=== PATIENT | female | born 2000 | race Caucasian/White ===

== ENCOUNTER 2020-02-02 13:49 | Emergency (ER) | payer BC ==
--- OUTSIDE RECORDS SUMMARY | 2020-02-02 14:06 | XMS REPORT | Continuity of Care Document ---
:2000 External Reference #:[id number] Author Name SAHRA West Address [address] [place] [address] Care Team Providers Name Role Phone Darren Carlson MD - Family Care Team Information Block Cutter Medicine Problems Description No Information Available Social History Type Date Description Comments Sex Unknown Tobacco Use Start: Unknown Never Smoked Cigarettes Smoking Status Reviewed: 12/20/19 Never Smoked Cigarettes ETOH Use Denies alcohol use Tobacco Use Start: Unknown Nonsmoker Recreational Drug Use Denies Drug Use Exercise Type/Frequency Exercises regularly Allergies, Adverse Reactions, Alerts Description No Known Drug Allergies Medications Active Medications SIG Qnty Indications Ordering Provider Date Sertraline HCL take 1 tablets by 45tabs F33.9 David Dumont, 12/20/2019 25mg mouth every day M.D. Tablets for the first week. increase to 2 tablets after the first week. Nexplanon 2016 Unknown 68mg Implant Immunizations Description No Information Available Vital Signs Date Vital Result Comment 12/20/2019 9:18am BP Systolic 110 mmHg BP Diastolic 78 mmHg Heart Rate 73 /min Body Temperature 98.0 F Respiratory Rate 16 /min Height 64 inches 5'4" Weight 176.50 lb BMI (Body Mass Index) 30.3 kg/m2 Results Test Acquired Date Facility Test Result H/L Range Note CBC Electronic Fma 12/20/2019 [facility]) WBC 6.3 x10^3/UL 4.0- 10.0 RBC 4.79 x10^6/UL 3.93-6.00 HGB 14.4 g/dL 12.0-17.0 HCT 43 % 35-50 MCV 90.6 fL 80.0-95.0 MCH 30.1 pg 25.6-32.2 MCHC 33.2 g/dL 32.2-36.0 RDW-CV 13.5 % 11.6-14.4 PLT 267 x10^3/UL 163-400 MPV 11.6 fL 9.4-12.4 [place]# 3.73 x10^3/UL 1.56-6.13 Lymph# 1.98 x10^3/UL 1.18-3.74 [place]# 0.46 x10^3/UL 0.24-0.82 Eos # 0.1 x10^3/UL 0.0-0.5 Baso # 0.02 x10^3/UL 0.01-0.08 [place]% 59.4 % 34.0-70.0 Lymph % 31.5 % 20.0-52.0 [place]% 7.3 % 5.0-12.0 Eos% 1.3 % 0.7-7.0 Baso% 0.3 % 0.1-1.2 Comprehensive Metabolic 12/20/2019 [facility](f[facility]) Sodium 139 mEq/L 134-149 Prof Potassium 4.3 mEq/L 3.6-5.5 Chloride 103 mEq/L 94-112 Carbon Dioxide 21 mEq/L 21-32 Glucose 84 mg/dL 70-105 BUN 11 mg/dL 6-26 Creatinine 0.6 mg/dL 0.6-1.4 BUN/Creat Ratio 18.3 CALC 8.0-36.0 Calcium 9.9 mg/dL 8.9-10.6 Total Protein 7.2 g/dL 6.4-8.3 Albumin 4.9 g/dL 3.8-5.5 Globulin 2.3 g/dL 2.0-4.8 A/G Ratio 2.1 CALC 0.6-2.3 Alk. Phosphatase 73 U/L 30-110 Alt (SGPT) 35 U/L 7-35 Ast (Sgot) 27 U/L 5-34 Total Bilirubin 0.7 mg/dL 0.2-1.3 GFR Non- >60 ml/min/1.73m^ >=60 GFR >60 ml/min/1.73m^ >=60 Laboratory test 12/20/2019 [facility]) Free T4 1.00 ng/dL 0.75- 1.54 finding TSH 3.57 mIU/L 0.50-6.00 Free T3 2.58 pg/mL 2.00-4.90 Teressa Panel-LD 12/20/2019 [facility] Anti-dsDNA <1 IU/mL 0-9 1, 2 ([facility]) [address] [facility] [place] [address] (607)- - Antinuclear 12/20/2019 [facility] Antinuclear Positive Abnormal 3 Antibodies [address] [facility] Antibodies, Ifa (Teressa), [place] [address] (603)- - Homogeneous Pattern 1:160 High Nucleolar Pattern TNP Speckled Pattern TNP Centromere Pattern TNP Spindle Apparatus Pattern TNP Nuclear Membrane Pattern TNP Midbody Pattern TNP Nuclear Dot Pattern TNP Pcna Pattern TNP Centriole Pattern TNP Note: See Comment: 4 Sjogren's AB, 12/20/2019 [facility] Sjogren's <0.2 AI 0.0-0.9 Anti-SS-A/-SS-B [address] [facility] [place] [place] [address] (607)- - Sjogren's Anti-SS-B <0.2 AI 0.0-0.9 Rheumatoid Arthritis 12/20/2019 [facility] Ra Latex <10.0 0.0-13.9 Factor ([facility]) [address] [place] [address] Turbid. IU/[place] [address] (608)- - Antiextractable 12/20/2019 [facility] MANAGER SERVICING Antibodies <0.2 AI 0.0-0.9 Nuclear Antigens [address] [place] [address] (606)- - Marinelli Antibodies <0.2 AI 0.0-0.9 Thyroid Antibody & 12/20/2019 [facility] Thyroid Peroxidase 11 IU/mL 0-[address] [place] [address] (Tpo) [place] [address] (604)- - Thyroglobulin Antibody <1.0 IU/mL 0.0-0.9 5 Laboratory test 12/20/2019 [facility] Selenium, 139 ug/L 91-198 finding [address] [facility] Serum/[place] [address] (60)- - 1 1 PLASMA pour off METAL FR EE tube from [place] [facility] k2 edta tube Test(s) 545844-Mldvatio, Serum/Plasma was developed and its performance characteristics determined by [facility]. It has not been cleared or approved by the Food and Drug Administration. 1 PLASMA pour off METAL FR EE tube from [place] [facility] k2 edta tube 1 PLASMA pour off METAL FR EE tube from [place] [facility] k2 edta tube 1 PLASMA pour off METAL FR EE tube from [place] [facility] k2 edta tube 2 Negative <5 Equivocal 5 - 9 Positive >9 3 Negative <1:80 Borderline 1:80 Positive >1:80 4 A positive TERESSA result may occur in healthy individuals (low titer) or be associated with a variety of diseases. See interpretation chart which is not all inclusive: Pattern Antigen Detected Suggested Disease Association Homogeneous DNA(ds,ss), SLE - High titers Nucleosomes, Histones Drug-induced SLE Speckled Sm, MANAGER SERVICING, SCL-70, SLE,MCTD,PSS (diffuse form), SS-A/SS-B Sjogrens Nucleolar SCL-70, PM-1/SCL High titers Scleroderma, PM/DM Centromere Centromere PSS (limited form) w/Crest syndrome variable Nuclear Dot [id number] Primary Biliary Cirrhosis Nuclear GP210, Primary Biliary Cirrhosis Membrane aiyana A,B,C 5 Thyroglobulin Antibody measured by [employer] Methodology Procedures Description No Information Available Medical Devices Description No Information Available Encounters Description No Information Available Assessments Date Code Description Provider 12/20/2019 F33.9 Major depressive disorder, recurrent, unspecified SAHRA West 12/20/2019 E04.1 Nontoxic single thyroid nodule SAHRA West Plan of Treatment Future Appointment(s):01/19/2020 10:30 am - [facility] at [facility]12/20/2019 - Haily Santiago, PAF33.9 Major depressive disorder, recurrent , unspecifiedNew Medication:Sertraline HCL 25 mg - take 1 tablets by mouth every day for the first week. increase to 2 tablets after the first week.Comments:Start sertraline 25 mg for the next 1 week, then increase to 50 mg. Slight stomach upset is common and should improve, any intolerable symptoms - stop the medication and let me know. [place] breathing - when feeling anxious and on a regular basis in the mornings with meditation, sitting relaxing walkingthrough relaxing each muscle in your body Headspace Application on your phone Journaling Follow up in 1 intlcH58.1 Nontoxic single thyroid noduleComments:History of nodule in the past Check thyroid levels Encourage you to continue gluten and dairy free diet Focus on incorporating more vegetables- green powders in smoothiesStart multivitamin daily - be sure it has Vitamin DAllComments:PCMHMedication Management Patient Understands medications he's taking? Yes Are there Barriers to Adherence? No Has the patient been asked about herbal supplements and therapies, and OTC meds? Yes Care Plan1. Patient has been queried about patient's goals/preferences and functional/lifestyle goals at relevant visits. Yes If relevant, describe: N/A2. Treatment goals as explained to the patient: above3. Are there barriers to meeting treatment goals? No If Yes, please describe:4. Self-Management goals as described to the patient: Yes As always, we strongly encourage a healthy diet and making physical activity a part of your every day life. If you have questions about how or where to start, please contact the office. Functional Status Description No Information Available Mental Status Description No Information Available Referrals Description No Information Available
--- OUTSIDE RECORDS SUMMARY | 2020-02-02 14:06 | XMS REPORT | Continuity of Care Document ---
:2000 External Reference #:[id number] Author Name SAHRA West Address [address] [place] [address] Care Team Providers Name Role Phone Darren Carlson MD - Family Care Team Information First Mate [phone] Medicine Problems Description No Information Available Social History Type Date Description Comments Sex Unknown Tobacco Use Start: Unknown Never Smoked Cigarettes Smoking Status Reviewed: 01/19/20 Never Smoked Cigarettes ETOH Use Denies alcohol use Tobacco Use Start: Unknown Nonsmoker Recreational Drug Use Denies Drug Use Exercise Type/Frequency Exercises regularly Allergies, Adverse Reactions, Alerts Description No Known Drug Allergies Medications Active Medications SIG Qnty Indications Ordering Provider Date Sertraline HCL 1 by mouth every 30tabs David Dumont, 01/19/2020 50mg morning M.D. Tablets Nexplanon 2016 Unknown 68mg Implant History Medications Sertraline HCL 2 by mouth 45tabs F33.9 David Dumont, 12/20/2019 - 25mg daily M.D. 01/19/2020 Tablets Immunizations Description No Information Available Vital Signs Date Vital Result Comment 01/19/2020 10:25am BP Systolic 90 mmHg BP Diastolic 64 mmHg Heart Rate 78 /min Height 64 inches 5'4" Weight 176.00 lb BMI (Body Mass Index) 30.2 kg/m2 12/20/2019 9:18am BP Systolic 110 mmHg BP [...] 3.73 x10^3/UL 1.56-6.13 Lymph# 1.98 x10^3/UL 1.18-3.74 [place]# 0.46 x10^3/UL 0.24-0.82 Eos # 0.1 x10^3/UL 0.0-0.5 Baso # 0.02 x10^3/UL 0.01-0.08 [place]% 59.4 % 34.0-70.0 Lymph % 31.5 % 20.0-52.0 [place]% 7.3 % 5.0-12.0 Eos% 1.3 % 0.7-7.0 Baso% 0.3 % 0.1-1.2 Comprehensive Metabolic 12/20/2019 [facility]) Sodium 139 mEq/L 134-149 Prof Potassium [...] GFR >60 ml/min/1.73m^ >=60 Laboratory test 12/20/2019 [facility](f[facility]) Free T4 1.00 ng/dL 0.75- 1.54 finding TSH 3.57 mIU/L 0.50-6.00 Free T3 2.58 pg/mL 2.00-4.90 Teressa Panel-LD 12/20/2019 [facility] Anti-dsDNA <1 IU/mL 0-9 1, 2 ([facility]) [address] [facility] [place] [address] (037)- - Antinuclear 12/20/2019 [facility] Antinuclear Positive Abnormal [address] [place] [address] Antibodies, Ifa (Teressa), [place] [address] (677)- - Homogeneous Pattern 1:160 High Nucleolar Pattern TNP Speckled Pattern TNP Centromere Pattern TNP Spindle Apparatus Pattern TNP Nuclear Membrane Pattern TNP Midbody Pattern TNP Nuclear Dot Pattern TNP Pcna Pattern TNP Centriole Pattern TNP Note: See Comment: 4 Sjogren's AB, 12/20/2019 [facility] Sjogren's <0.2 AI 0.0-0.9 Anti-SS-A/-SS-B [address] [place] [address] [place] [address] (943)- - Sjogren's Anti-SS-B <0.2 AI 0.0-0.9 Rheumatoid Arthritis 12/20/2019 [facility] Ra Latex <10.0 0.0-13.9 Factor ([facility]) [address] [place] [address] Turbid. IU/[place] [address] (701)- - Antiextractable 12/20/2019 [facility] EDGE TRIMMER MECHANIC Antibodies <0.2 AI 0.0-0.9 Nuclear Antigens [address] [place] [address] (955)- - Marinelli Antibodies <0.2 AI 0.0-0.9 Thyroid Antibody & 12/20/2019 [facility] Thyroid Peroxidase 11 IU/mL 0-[address] [place] [address] (Tpo) [place] [address] (455)- - Thyroglobulin Antibody <1.0 IU/mL 0.0-0.9 5 Laboratory test 12/20/2019 [facility] Selenium, 139 ug/L 91-198 finding [address] [facility] Serum/[place] [address] (339)- - 1 1 PLASMA pour off METAL FR EE tube from [place] [facility] k2 edta tube Test(s) 054412-Dwionpva, Serum/Plasma was developed and its performance characteristics determined by [facility]. It has not been cleared or approved by the Food and Drug Administration. 1 PLASMA pour off METAL FR EE tube from [place] Blue k2 edta tube 1 PLASMA pour off METAL FR EE tube from [place] Blue k2 edta tube 1 PLASMA pour off METAL FR EE tube from [place] Blue k2 edta tube 2 Negative <5 [...] titers Nucleosomes, Histones Drug-induced SLE Speckled Sm, EDGE TRIMMER MECHANIC, SCL-70, SLE,MCTD,PSS (diffuse form), SS-A/SS-B Sjogrens Nucleolar SCL-70, PM-1/SCL High titers Scleroderma, PM/DM Centromere Centromere PSS (limited form) w/Crest syndrome variable Nuclear Dot [id number] Primary Biliary Cirrhosis Nuclear GP210, Primary Biliary Cirrhosis Membrane aiyana A,B,C 5 Thyroglobulin Antibody measured by [employer] Methodology Procedures Description No Information Available Medical Devices Description No Information Available Encounters Type Date Location Provider Dx Diagnosis Office Visit 12/20/2019 [facility] Haily Santiago, F33.9 Major depressive 9:30a PA disorder, recurrent, unspecified E04.1 Nontoxic single thyroid nodule Assessments Date Code Description Provider 01/19/2020 F33.9 Major depressive disorder, recurrent, unspecified SAHRA West 01/19/2020 E04.1 Nontoxic single thyroid nodule SAHRA West 12/20/2019 F33.9 Major depressive disorder, recurrent, unspecified SAHRA West 12/20/2019 E04.1 Nontoxic single thyroid nodule SAHRA West Plan of Treatment Future Appointment(s):04/18/2020 10:30 am - [facility] West at [facility]/19/2020 - Haily Santiago PAF33.9 Major depressive disorder, recurrent , unspecifiedComments:Continue Sertraline 50 mg daily. [place] breathing - when feeling anxious and on a regular basis in the mornings with meditation, sitting relaxing walking through relaxing each muscle in your body Headspace Application on your phone Journaling Follow up in 3 months or sooner if livmspJ10.1 Nontoxic single thyroid noduleComments:Check levels yearlyAllNew Medication:Sertraline HCL 50 mg - 1 by mouth every morningComments: PCMHMedication Management Patient Understands medications he's taking? Yes Are there Barriers to Adherence? No Has the patient been asked about herbal supplements and therapies, and OTC meds? Yes Care Plan1. Patient has been queried about patient's goals/preferences and functional/ lifestyle goals at relevant visits. Yes If relevant, [...] Mental Status Description No Information Available Referrals Refer to Reason for Referral Status Appt Date Darren Vasques MD + TERESSA jw Sent [address], [place] [address] [phone]
[2020-02-02 14:30] LABS: Influenza A Molecular Negative (Negative); Influenza B Molecular Negative (Negative)
[2020-02-02 15:06] VITALS: BP 125/84
--- NOTE | 2020-02-02 17:29 | ED ---
Influenza-Like Illness - HPI Summary HPI Summary: Pt. is a 19 yo female who presents to the ER for cough, nasal congestion, chills and sore throat x 2-3 days. 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 Pt. denies abd. pain, V/D. No past medical hx. Sxs are mild in severity. No current modifying factors. - History of Current Complaint Chief Complaint: EDFluSymptoms Time Seen by Provider: 02/02/20 14:43 Hx Obtained From: Patient - Allergy/Home Medications Allergies/Adverse Reactions: Allergies Allergy/AdvReac Type Severity Reaction Status Date / Time No Known Allergies Allergy Verified 02/02/20 13:57 PMH/Surg Hx/FS Hx/Imm Hx Previously Healthy: Yes Infectious Disease History: No Infectious Disease History: Denies: Traveled Outside the [place] in Last 30 Days - Family History Known Family History: Positive: Non-Contributory - Social History Occupation: Employed Full-time Lives: With Family Review of Systems Positive: Chills. Negative: Fever Eyes: Negative Positive: Sore Throat, Nasal Discharge Positive: Cough. Negative: Shortness Of Breath Gastrointestinal: Negative Negative: Abdominal Pain, Vomiting, Diarrhea Musculoskeletal: Negative Skin: Negative Neurological/Mental Status: Negative All Other Systems Reviewed And Are Negative: Yes Physical Exam Triage Information Reviewed: Yes Vital Signs On Initial Exam: Initial Vitals Temp Pulse Resp BP Pulse Ox 96.3 F 94 18 115/82 99 02/02/20 13:56 02/02/20 13:56 02/02/20 13:56 02/02/20 13:56 02/02/20 13:56 Vital Signs Reviewed: Yes Appearance: Positive: Well-Appearing - Pt. sitting up in bed in NAD. Skin: Positive: Warm, Dry Head/Face: Positive: Normal Head/Face Inspection Eyes: Positive: Normal, EOMI ENT: Positive: Pharyngeal erythema, TMs normal. Negative: Tonsillar swelling, Tonsillar exudate Neck: Positive: Supple Respiratory/Lung Sounds: Positive: Clear to Auscultation, Breath Sounds Present. Negative: Rales, Rhonchi, Wheezes Cardiovascular: Positive: Normal, RRR Neurological: Positive: Normal, CN Intact II-III Psychiatric: Positive: Affect/Mood Appropriate Procedures - Sedation Patient Received Moderate/Deep Sedation with Procedure: No Diagnostics - Vital Signs Vital Signs Temp Pulse Resp BP Pulse Ox 02/02/20 15:05 97.8 F 82 18 125/84 99 02/02/20 13:56 96.3 F 94 18 115/82 99 - Laboratory Lab Results: Lab Results 02/02/20 Range/Units 14:00 Influenza A (Rapid) Negative (Negative) Influenza B (Rapid) Negative (Negative) Lab Statement: Any lab studies that have been ordered have been reviewed, and results considered in the medical decision making process. Flu Symptom Course/Dx - Course Course Of Treatment: Pt. with above symptoms. Afebrile in ED and nontoxic appearing. Negative flu. Suspect viral etiology. Discussed supprotive care. Will f.u with [facility] if sxs persist and return to er if sxs change or worsen. Pt. understands and agrees with plan. - Diagnoses Differential Diagnosis/HQI/PQRI: Positive: Influenza, Pneumonia, Upper Respiratory Infection Provider Diagnoses: Viral syndrome Discharge ED - Sign-Out/Discharge Documenting (check all that apply): Patient Departure - Discharge Plan Condition: Good Disposition: HOME Patient Education Materials: Viral Syndrome (ED) Forms: *Work Release Referrals: [facility] [Outside] Additional Instructions: Follow up with the [facility] if symptoms persist Increase fluids and rest Tylenol or Motrin for pain and fever as directed Return to ER if symptoms change or worsen - Billing Disposition and Condition Condition: GOOD Disposition: Home - Attestation Statements Provider Attestation: I was available for consult. This patient was seen by the FANI. The patient was not presented to, seen by, or examined by me. Demond Cruz MD
== END 2020-02-02 15:05 | disposition home or self-care (01) ==
LOC: ED 13:49
DX: B34.9 Viral infection, unspecified (principal)
CPT/HCPCS: 99281